=== PATIENT | male | born 1990 | race Two or more races ===

== ENCOUNTER 2024-12-19 21:56 | Emergency (ER) | payer MEDICAID, SELFPAY ==
[2024-12-19 21:59] VITALS: BMI 27.3
--- NOTE | 2024-12-19 22:07 | EKG_ITS ---
[facility] Test Date: 2024-12-19 Pat Name: MEL EVANGELISTA Department: Room: - Gender: Male [employer]: : 1990 Requested By: ED Temporary Provider Order Number: [id number] Reading MD: ED Temporary Provider Measurements Intervals [place] Rate: 68 P: 41 GA: 188 QRS: 37 QRSD: 101 T: 62 QT: 365 QTc: 389 Interpretive Statements SINUS RHYTHM POSSIBLE LEFT ATRIAL ENLARGEMENT [-0.1mV P-WAVE IN V1/V2] No previous ECG available for comparison /store/S0/[id number]/ecg/[id number].pdf
[2024-12-19 22:41] VITALS: BP 113/74; PULSE 65; RESP 16; TEMP 36.8; O2SAT 98
--- NOTE | 2024-12-20 00:17 | EDNOTE_ITS ---
ED Dizzyness RME/HPI General Chief Complaint: Dizziness Stated Complaint: LIGHT HEADED AND NAUSEATED Time Seen by Provider: 12/19/24 23:14 Arrival date/time: 12/19/24 21:56 RME / HPI RME / HPI Narrative: 34-year-old male presents to the ED with a complaint of dizziness and nausea. He denies any recent URI symptoms of runny nose, nasal congestion, sore throat or ear pain. He denies any chest pain or shortness of breath but has had some nausea but no vomiting. He denies diarrhea or abdominal pain. Related Data Previous Rx's ?Medication ?Instructions ?Recorded oseltamivir 75 mg capsule (Tamiflu) 75 mg PO BID 5 day s #10 caps 12/20/24 Allergies Allergy/AdvReac Type Severity Reaction Status Date / Time No Known Allergies Allergy Verified 12/19/24 22:03 Review of Systems Review of Systems Systems Reviewed: All systems reviewed, normal except as documented Past Medical History Social History SMOKING STATUS: Current every day smoker ED Exam Narrative Physical exam: Alert and oriented 34-year-old male, no acute distress. Pupils are PERRL, EOMs intact. Mild dizziness with EOMs, no nystagmus noted. TMs without erythema or air-fluid levels. Nares pale and boggy, pharynx without erythema or exudate. Cranial nerves II through XII grossly intact. Neck is supple no adenopathy, lungs are clear, cardiovascular regular rate and rhythm without murmurs. Abdomen is soft and nontender. No CVA tenderness is noted. Moves all extremities well. No edema is noted to bilateral lower extremities. Course Course Course Narrative: Influenza A/B swabs are both positive. COVID swab negative, rapid strep negative. CBC reveals a normal white count of 7.0 with normal H&H. ESR is normal at 6. CMP, troponin, and CRP are currently pending. Chest x-ray reveals left lower lobe infiltrate. Quality Measures none Orders Category Date Time Status Bedside Influenza A&B Antigen Test NOW Care 12/20/24 00:21 Completed EKG (ED ONLY) *Do not use* NOW Care 12/19/24 22:07 Completed EKG (ED Only) Stat Exams 12/19/24 22:07 Draft XR chest 2V Stat Exams 12/20/24 00:20 Taken CBC Stat Lab 12/20/24 00:41 Completed CK [Creatine Kinase] Stat Lab 12/20/24 00:41 Completed CMP [Comprehensive Metabolic Panel] Stat Lab 12/20/24 00:41 Completed COVID-19 Antigen (In-House) Stat Lab 12/20/24 00:32 Completed CRP [C-Reactive Protein] Stat Lab 12/20/24 00:41 Completed Drug Screen,Urine Stat Lab 12/20/24 03:04 Completed ESR [Sed Rate (ESR)] Stat Lab 12/20/24 00:41 Completed Strep A Rapid Stat Lab 12/20/24 00:32 Completed Troponin I Stat Lab 12/20/24 00:41 Completed Urinalysis Stat Lab 12/20/24 03:04 Completed Vital Signs Vital signs: Vital Signs Temperature 98.3 F 12/19/24 22:41 Pulse Rate 65 12/19/24 22:41 Respiratory Rate 16 12/19/24 22:41 Blood Pressure 113/74 12/19/24 22:41 Pulse Oximetry (%) 98 12/19/24 22:41 Oxygen Delivery Method Room Air 12/19/24 22:41 Dizziness MDM Narrative MDM Narrative:: 34-year-old male presents to the ED with a complaint of dizziness and nausea. He denies any recent URI symptoms of runny nose, nasal congestion, sore throat or ear pain. He denies any chest pain or shortness of breath but has had some nausea but no vomiting. He denies diarrhea or abdominal pain. Alert and oriented 34-year-old male, no acute distress. Pupils are PERRL, EOMs intact. Mild dizziness with EOMs, no nystagmus noted. TMs without erythema or air-fluid levels. Nares pale and boggy, pharynx without erythema or exudate. Cranial nerves II through XII grossly intact. Neck is supple no adenopathy, lungs are clear, cardiovascular regular rate and rhythm without murmurs. Abdomen is soft and nontender. No CVA tenderness is noted. Moves all extremities well. No edema is noted to bilateral lower extremities. Influenza A/B swabs are both positive. COVID swab negative, rapid strep negative. CBC reveals a normal white count of 7.0 with normal H&H. ESR is normal at 6. CMP, troponin, and CRP are currently pending. Chest x-ray reveals left lower lobe infiltrate. Patient data External records reviewed:: None Clinical information provided by:: patient Social determinants that could affect healthcare access:: none Patient has the following chronic illnesses:: N/A How is presenting disease/condition affected by chronic disease/condition?: no c hronic disease Evaluation data The following diagnostics were reviewed and interpreted by me:: lab results and radiology exam(s) Lab and/or radiology exams considered but not ordered:: N/A Interpretation Summary: Influenza A/B swabs are both positive. COVID swab negative, rapid strep negative. CBC reveals a normal white count of 7.0 with normal H&H. ESR is normal at 6. CMP, troponin, and CRP are currently pending. Chest x-ray reveals left lower lobe infiltrate. Medications / Prescriptions Medications or Prescriptions considered but not ordered:: N/A Medication administrations:: N/A Consultations Consultation(s) initiated? (list below): No Diagnosis Dizziness Differential Diagnosis: benign paroxysmal positional vertigo, orthostatic hypotension, acute vestibular neuronitis and other (Influenza, COVID, pneumonia, serous otitis media, ACS) Most likely diagnosis given after review of the tests above:: Influenza Admission Indicated Admission indicated?: not indicated Explain why admission is indicated or not indicated:: Patient is stable for discharge Admission Request Was there a request for admission?: No Disposition Plan Disposition Plan: Discharge Discharge Attestation Discharge Attestation: The patient and all family members were given an opportunity to ask questions and understood the discharge instructions. Discharge instructions specifically effects, indications for sooner follow up or return to the emergency department, and the expected course of current diagnosis. Patient condition: Stable Discharge Plan Plan Patient Disposition: HOME (Self Care) Discharge Disposition comment: Stable Prescriptions/Referrals Prescriptions/Med Rec: New oseltamivir [Tamiflu] 75 mg capsule 75 mg PO BID 5 Days Qty: 10 0RF Referrals: No Primary/Family,Physician [Primary Care Provider] - In 1 week Problem List Clinical Impression: Influenza Patient/Caregiver Discharge Instructions Education Materials: ED Influenza (Adult) Additional Instructions: Take the antiviral medication as prescribed and complete the course even though you may be feeling better. Follow-up with your primary care physician in 24 to 48 hours. Return to the ED for any new or worsening symptoms. Print Language: Nauruan Stand Alone Forms: Radha Award Info., Work/School Release, Patient Portal Info Letter DENISE/MAGNUS Supervising Physician DENISE/MAGNUS Supervising Physician: Dr. Christiansen
--- NOTE | 2024-12-20 00:20 | XR_ITS ---
Examination: PA and lateral chest 2 views TECHNIQUE: Upright PA lateral chest 2 views Date and time: December 20, 2024 at 0033 hours INDICATIONS: Dizziness today FINDINGS: Normal heart size No aspiration pneumonia. The osseous structures are intact IMPRESSION: No active disease
[2024-12-20 00:58] LABS: Basophils % (Auto) 1 % (0-2.5); Eosinophils # (Auto) 0.2 Thou/mm3 (0.0-0.5); Eosinophils % (Auto) 3 % (0-10); Hematocrit 42.6 % (41.0-53.0); Hemoglobin 15.4 g/dL (13.5-16.0); Immature Granulocytes % (Auto) 0 % (0-0); Immature Granulocytes Auto 0.02 Thou/mm3 (0.00-0.00); Lymphocytes # (Auto) 2.1 Thou/mm3 (1.0-4.8); Lymphocytes % (Auto) 30 % (10-50); Mean Corpuscular HGB Conc 36.2 g/dl (31.0-37.0); Mean Corpuscular Hemoglobin 30.9 pg (25.0-35.0); Mean Corpuscular Volume 86 fL (80-100); Monocytes # (Auto) 0.5 Thou/mm3 (0.0-0.8); Monocytes % (Auto) 7 % (0-12); Neutrophils # (Auto) 4.2 Thou/mm3 (1.8-7.7); Neutrophils % (Auto) 60 % (37-80); Nucleated Red Blood Cell % 0 /100 WBC (0); Platelet Count 176 Thou/mm3 (140-440); RDW Standard Deviation 40.5 fL (35.1-43.9); Red Blood Count 4.98 Miln/mm3 (4.50-5.90)
[2024-12-20 00:59] LABS: Sed Rate (ESR) 6 mm/hr (0-15)
[2024-12-20 01:20] LABS: COVID-19 Antigen (In-House) Negative (Negative); Strep A Rapid Negative (Negative)
[2024-12-20 02:30] LABS: Alanine Aminotransferase 20 U/L (10-49); Albumin, Serum 4.7 gm/dL (3.5-5.0); Albumin/Globulin Ratio 2.8 (1.2-2.2); Alkaline Phosphatase 53 U/L (46-116); Anion Gap 8 (7-16); Aspartate Amino Transferase 23 U/L (0-34); BUN/Creatinine Ratio 12 Ratio (12-20); Bilirubin,Total 0.7 mg/dL (0.3-1.2); Blood Urea Nitrogen 16 mg/dL (9-23); Calcium 9.4 mg/dL (8.3-10.6); Calcium (Corrected) 9.4 mg/dL (8.5-10.1); Carbon Dioxide 23.6 mMol/L (20.0-31.0); Chloride 107 mMol/L (98-107); Creatine Kinase 94 U/L (34-171); Creatinine (Component) 1.3 mg/dL (0.6-1.3); Estimated Creatinine Clearance 79.3 mL/min (>60); Globulin 1.7 gm/dL (2.3-3.5); Glucose 99 mg/dL (74-106); Osmolality,Calculated 278 (275-295); Potassium 3.9 mMol/L (3.4-5.1); Sodium 139 mMol/L (136-145); Total Protein 6.4 gm/dL (5.7-8.2); Troponin I < 0.002 ng/mL (0.0-0.045); eGFR > 60 See Note
[2024-12-20 02:51] LABS: C-Reactive Protein < 0.5 mg/dL (0.0-0.9)
[2024-12-20 03:09] LABS: Collection Type, Urine Clean Catch
[2024-12-20 03:14] VITALS: BP 116/79; PULSE 64; RESP 16; TEMP 36.8; O2SAT 97
[2024-12-20 03:28] LABS: Bilirubin,Urine Negative (Negative); Blood,Urine Negative (Negative); Clarity,Urine Turbid (Clear/Hazy); Color,Urine Yellow (Lt Yel-Yel); Glucose, Urine Negative (Negative); Ketones,Urine Negative (Negative); Leukocyte Esterase,Urine Negative (Negative); Nitrite,Urine Negative (Negative); Protein,Urine 1+ (Neg - Trace); RBC,Urine 6 /hpf (0-3); Specific Gravity,Urine 1.035 (1.001-1.035); Squamous Epithelial Cell,Urine < 1 /hpf (0-5); WBC,Urine 4 /hpf (0-5)
[2024-12-20 03:36] LABS: Amphetamine/Methamp Scrn,U Negative (Negative); Barbiturate Screen,Urine Negative (Negative); Benzodiazepines Screen,Urine Negative (Negative); Benzoylecgonine Screen, Ur Negative (Negative); Fentanyl Screen,Urine Negative (Negative); Opiate Screen,Urine Negative (Negative); THC Screen,Urine Positive (Negative)
== END 2024-12-20 04:14 | disposition home or self-care (01) ==
PROVIDERS: Physician Assistant; Emergency Provider Emergency Medicine
DX: J10.1 Influenza due to other identified influenza virus with other respiratory manifestations (principal); J10.2 Influenza due to other identified influenza virus with gastrointestinal manifestations; R42 Dizziness and giddiness; F17.210 Nicotine dependence, cigarettes, uncomplicated
CPT/HCPCS: 36415; 71046; 80053; 80307; 81001; 82550; 84484; 85025; 85652; 86140; 87400; 87651; 87811; 93005; 99283